=== PATIENT | male | born 1960 | race Hispanic/Latino ===

== ENCOUNTER 2017-10-14 20:31 | Emergency (ER) | payer SELFPAY ==
--- NOTE | 2017-10-14 22:24 | EDPHYS ---
Physician Documentation [facility] Name: Lawrence Aguilar Age: 57 yrs Sex: Male : 1960 Arrival Date: 10/14/2017 Time: 20:32 Bed 9 Private MD: ED Physician Harsh Ibarra HPI: 10/14 22:20 This 57 yrs old Male presents to ER via Ambulatory with complaints of Ear Pain.pm1 22:20 The patient presents with drainage, pain. pm1 22:20 The complaints affect the left ear. Onset: The symptoms/episode began/occurred 2 pm1 week(s) ago. Modifying factors: The symptoms are alleviated by nothing, the symptoms are aggravated by nothing. Associated signs and symptoms: Pertinent negatives: fever. Severity of symptoms: in the emergency department the symptoms are worse. The patient has not experienced similar symptoms in the past. The patient has not recently seen a physician, and does not have an established primary care provider. Historical: - Allergies: 22:05 NKA; bb - Home Meds: 22:05 metformin 1,000 mg oral tab 1 tab 2 times per day [Active]; enalapril maleate 5 mg Oral bb tab 1 tab once daily [Active]; - PMHx: 22:05 Diabetes - NIDDM; Hypertension; bb - PSHx: 22:05 right shoulder; abscess; bb - Immunization history:: Adult Immunizations up to date. - Social history:: Smoking status: Patient/guardian denies using tobacco, Patient uses alcohol, but reports only rare drinking. Patient/guardian denies using street drugs. ROS: 22:20 Constitutional: Negative for fever, chills, and weight loss, Eyes: Negative for injury, pm1 pain, redness, and discharge. 22:20 Neck: Negative for injury, pain, and swelling, Cardiovascular: Negative for chest pain, palpitations, and edema, Respiratory: Negative for shortness of breath, cough, wheezing, and pleuritic chest pain, Abdomen/GI: Negative for abdominal pain, nausea, vomiting, diarrhea, and constipation, Back: Negative for injury and pain, MS/Extremity: Negative for injury and deformity, Skin: Negative for injury, rash, and discoloration, Neuro: Negative for headache, weakness, numbness, tingling, and seizure. 22:20 ENT: Positive for drainage from ear(s), ear pain. Exam: 22:20 Constitutional: This is a well developed, well nourished patient who is awake, alert, pm1 and in no acute distress. Head/Face: Normocephalic, atraumatic. Eyes: Pupils equal round and reactive to light, extra-ocular motions intact. Lids and lashes normal. Conjunctiva and sclera are non-icteric and not injected. Cornea within normal limits. Periorbital areas with no swelling, redness, or edema. 22:20 Neck: Trachea midline, no thyromegaly or masses palpated, and no cervical lymphadenopathy. Supple, full range of motion without nuchal rigidity, or vertebral point tenderness. No Meningismus. Chest/axilla: Normal chest wall appearance and motion. Nontender with no deformity. No lesions are appreciated. Cardiovascular: Regular rate and rhythm with a normal S1 and S2. No gallops, murmurs, or rubs. Normal PMI, no JVD. No pulse deficits. Respiratory: Lungs have equal breath sounds bilaterally, clear to auscultation and percussion. No rales, rhonchi or wheezes noted. No increased work of breathing, no retractions or nasal flaring. Back: No spinal tenderness. No costovertebral tenderness. Full range of motion. Skin: Warm, dry with normal turgor. Normal color with no rashes, no lesions, and no evidence of cellulitis. MS/ Extremity: Pulses equal, no cyanosis. Neurovascular intact. Full, normal range of motion. 22:20 ENT: External ear(s): are unremarkable, Ear canal(s): erythema, of the left canal, swelling, of the left canal, TM's: rupture, on the left, Nose: is normal, Mouth: is normal. Vital Signs: 22:05 BP 146 / 96; Pulse 96; Resp 18 S; Temp 98.4(O); Pulse Ox 99% on R/A; Weight 91.63 kg bb (R); Height 5 ft. 10 in. (177.80 cm) (R); Pain 8/10; 22:05 Body Mass Index 28.98 (91.63 kg, 177.80 cm) bb MDM: 22:16 Patient medically screened. pm1 22:20 Data reviewed: vital signs. Data interpreted: Pulse oximetry: on room air is 99 %. pm1 Interpretation: normal. Counseling: I had a detailed discussion with the patient and/or guardian regarding: the historical points, exam findings, and any diagnostic results supporting the discharge/admit diagnosis, the need for outpatient follow up, to return to the emergency department if symptoms worsen or persist or if there are any questions or concerns that arise at home. Administered Medications: 22:42 Drug: [place] 5 mg-325 mg 1 tabs Route: PO; berny Disposition: 10/15 02:46 Co-signature as Attending Physician, Harsh Ibarra MD. lenora Disposition: 10/14/17 22:23 Discharged to Home. Impression: Unspecified perforation of tympanic membrane, left ear, Unspecified otitis externa, left ear. - Condition is Stable. - Discharge Instructions: Eardrum Perforation, Ear Drops, Adult, Otitis Externa. - Prescriptions for Cortisporin 3.5- 10,000-1 mg/mL-unit/mL-% Otic solution - instill 4 drop by OTIC route 4 times per day for 10 days Dispense suspension; 10 milliliter. Augmentin 875- 125 mg Oral Tablet - take 1 tablet by ORAL route every 12 hours for 10 days; 20 tablet. Tylenol- Codeine #3 300-30 mg Oral Tablet - take 2 tablet by ORAL route every 6 hours As needed; 30 tablet. - Medication Reconciliation Form, Thank You Letter, Antibiotic Education, Prescription Opioid Use form. - Follow up: Emergency Department; When: As needed; Reason: Worsening of condition. Follow up: Private Physician; When: 2 - 3 days; Reason: Recheck today's complaints, Continuance of care, Re-evaluation by your physician. - Problem is new. - Symptoms have improved. Signatures: Cynthia aMrk RN Nan Caballero RN RN bb Marinas, Patrick, [employer] pm1 Harsh Ibarra MD MD gs
--- NOTE | 2017-10-14 22:24 | ER ---
Nurse's Notes [facility] Name: Lawrence Aguilar Age: 57 yrs Sex: Male : 1960 Arrival Date: 10/14/2017 Time: 20:32 Bed 9 Private MD: Diagnosis: Unspecified perforation of tympanic membrane, left ear;Unspecified otitis externa, left ear Presentation: 10/14 22:03 Presenting complaint: Patient states: he is having a left ear ache x 2 weeks pain is bb getting worse. Transition of care: patient was not received from another setting of care. Onset of symptoms was September 30, 2017. Initial Sepsis Screen: Does the patient meet any 2 criteria? No. Patient's initial sepsis screen is negative. Does the patient have a suspected source of infection? No. Patient's initial sepsis screen is negative. Care prior to arrival: None. 22:03 Method Of Arrival: Ambulatory bb 22:03 Acuity: MCKENZIE 5 bb Historical: - Allergies: 22:05 NKA; bb - Home Meds: 22:05 metformin 1,000 mg oral tab 1 tab 2 times per day [Active]; enalapril maleate 5 mg Oral bb tab 1 tab once daily [Active]; - PMHx: 22:05 Diabetes - NIDDM; Hypertension; bb - PSHx: 22:05 right shoulder; abscess; bb - Immunization history:: Adult Immunizations up to date. - Social history:: Smoking status: Patient/guardian denies using tobacco, Patient uses alcohol, but reports only rare drinking. Patient/guardian denies using street drugs. Screenin:43 Abuse screen: Denies threats or abuse. Nutritional screening: No deficits noted. kl Tuberculosis screening: No symptoms or risk factors identified. Fall Risk None identified. Assessment: 22:42 General: Appears in no apparent distress. well groomed, well developed, Behavior is kl calm, cooperative. Pain: Complains of pain in right ear. EENT: Reports pain in right ear. Vital Signs: 22:05 BP 146 / 96; Pulse 96; Resp 18 S; Temp 98.4(O); Pulse Ox 99% on R/A; Weight 91.63 kg bb (R); Height 5 ft. 10 in. (177.80 cm) (R); Pain 8/10; 22:05 Body Mass Index 28.98 (91.63 kg, 177.80 cm) doug ED Course: 20:32 Patient arrived in ED. am2 22:04 Triage completed. bb 22:05 Arm band placed on Patient placed in waiting room, Patient notified of wait time. bb 22:08 Nan Wharton, RN is Primary Nurse. bb 22:16 Jayme Naik NP is PHCP. pm1 22:16 Harsh Ibarra MD is Attending Physician. pm1 22:43 No provider procedures requiring assistance completed. Patient did not have IV access kl during this emergency room visit. Administered Medications: 22:42 Drug: [place] 5 mg-325 mg 1 tabs Route: PO; kl Outcome: 22:23 Discharge ordered by . pm1 22:43 Discharged to home ambulatory. 22:43 Condition: good 22:43 Instructed on discharge instructions, no drinking with medication, medication usage, Demonstrated understanding of instructions, follow-up care, medications, Prescriptions given X 3. 22:48 Patient left the ED. Signatures: Cynthia Mark RN RN kl Ballard, Brenda, RN RN Jayme Hernández NP [employer]IC[employer] pm1 Ruth Ramey am2
[2017-10-14] MEDS ORDERED: HYDROCODONE/APAP 5/325 MG TAB ONE (22:38)
== END 2017-10-14 22:48 | disposition home or self-care (01) ==
LOC: ER 20:31
DX: H72.92 Unspecified perforation of tympanic membrane, left ear (principal); H60.92 Unspecified otitis externa, left ear; I10 Essential (primary) hypertension; E11.9 Type 2 diabetes mellitus without complications
CPT/HCPCS: 99283